=== PATIENT | female | born 2000 ===

== ENCOUNTER 2020-12-05 13:45 | Emergency (ER) | payer BC ==
[~2020-12-05] VITALS: Ht 160 cm; Wt 50.4 kg
--- NOTE | 2020-12-05 15:37 | NUR ---
PT STATES, PAIN RIGHT OF HEAD, BLURRED VISION. PAIN HAS WORSENED LAST FEW DAYS
[2020-12-05 15:54] VITALS: BP 111/64
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
== END 2020-12-05 16:28 | disposition home or self-care (01) ==
LOC: ER 13:46
DX: F07.81 Postconcussional syndrome (principal); Y04.8XXA Assault by other bodily force, initial encounter; Y93.89 Activity, other specified; Y92.89 Other specified places as the place of occurrence of the external cause; Y99.8 Other external cause status
CPT/HCPCS: 99282